=== PATIENT | male | born 1955 | race Caucasian/White ===

== ENCOUNTER 2020-08-12 02:28 | Inpatient (IN) | payer MEDICARE, MEDICAID ==
[~2020-08-12] VITALS: Ht 172.7 cm; Wt 70.3 kg
[~2020-08-12 02:28] MED LIST: LURA40TA2 PO; OMEP20 PO; TAMS-13 PO; XALA2.5OS OU
[2020-08-12] MEDS ORDERED: HALOPERIDOL 5 MG TABLET PO PRN (05:00)
[2020-08-12 06:03] VITALS: BP 122/64
[2020-08-12] MEDS ORDERED: INFLUENZA VIRUS VACCINE QVS 2020-21 (6MO+)/PF 60 MCG/0.5 ML SYRINGE IM ONE (06:15)
[2020-08-12] MEDS ORDERED: PNEUMOCOCCAL VACCINE POLYVALENT 0.5 ML VIAL [PPSV23] IM ONE (06:15)
[2020-08-12] MEDS ORDERED: DOCUSATE SODIUM 100 MG CAPSULE PO PRN (07:30)
[2020-08-12] MEDS ORDERED: MAGNESIUM HYDROXIDE SUSPENSION 30 ML UDCUP PO PRN (07:30)
[2020-08-12] MEDS ORDERED: GuaiFENesin/D-METHORPHAN [SUGAR-FREE] 200-20MG/10 ML SYRUP UDCUP PO PRN (07:30)
[2020-08-12] MEDS ORDERED: ONDANSETRON HCL 4 MG TABLET PO PRN (07:30)
[2020-08-12] MEDS ORDERED: ALBUTEROL SULFATE HFA 90 MCG/PUFF 8 GM INHALER IH PRN (07:30)
[2020-08-12] MEDS ORDERED: PETROLATUM,WHITE 28 GM JELLY TP PRN (07:30)
[2020-08-12] MEDS ORDERED: IBUPROFEN 400 MG TABLET PO PRN (07:30)
[2020-08-12] MEDS ORDERED: MAG HYDROX/AL HYDROX/SIMETH ES 30 ML SUSPENSION UDCUP PO PRN (07:30)
[2020-08-12] MEDS ORDERED: ACETAMINOPHEN 325 MG TABLET PO PRN (07:30)
[2020-08-12] MEDS ORDERED: CloNIDine HCL 0.1 MG TABLET PO PRN (07:30)
[2020-08-12] MEDS ORDERED: NICOTINE 14 MG/24 HOUR PATCH TD PRN (07:30)
[2020-08-12] MEDS ORDERED: LOPERAMIDE HCL 2 MG CAPSULE PO PRN (07:30)
[2020-08-12 08:11] VITALS: BP 114/63
[2020-08-12] MEDS ORDERED: TAMSULOSIN HCL 0.4 MG CAPSULE PO SCH (09:00)
[2020-08-12] MEDS ORDERED: ALBU8HFA IH (09:14)
[2020-08-12] MEDS ORDERED: AMLO-258 PO (09:22)
[2020-08-12] MEDS ORDERED: ASPI-1450 PO (09:22)
[2020-08-12] MEDS ORDERED: LISI-893 PO (09:22)
[2020-08-12] MEDS ORDERED: DULO-8 PO (09:22)
[2020-08-12] MEDS: OMEPRAZOLE 20 MG CAPSULE PO SCH (09:30)
[2020-08-12] MEDS ORDERED: FLUT1BLS8 IH (09:33)
[2020-08-12] MEDS ORDERED: MODA100T65 PO (09:33)
[2020-08-12] MEDS ORDERED: LURA80TA2 PO (09:33)
[2020-08-12] MEDS ORDERED: TAMS-13 PO (09:33)
[2020-08-12] MEDS ORDERED: METO50 PO (09:33)
[2020-08-12] MEDS ORDERED: BIMA12.5OS OU (09:33)
[2020-08-12] MEDS ORDERED: ONDA-104 PO (09:33)
[2020-08-12] MEDS ORDERED: GABA-1181 PO (10:09)
[2020-08-12] MEDS: DULoxetine HCL 60 MG CAPSULE PO SCH (12:14)
[2020-08-12] MEDS: LURASIDONE HCL 80 MG TABLET PO SCH (17:03)
[2020-08-12 17:45] VITALS: BP 110/60
[2020-08-12] MEDS: TAMSULOSIN HCL 0.4 MG CAPSULE PO SCH (20:46)
[2020-08-12] MEDS: LATANOPROST 0.005% 2.5 ML OPHTHALMIC SOLUTION OU SCH (21:32)
[2020-08-13] MEDS: ZOLPIDEM TARTRATE 10 MG TABLET PO PRN ×2 (02:12→08:35)
[2020-08-13 04:09] VITALS: BP 108/61
[2020-08-13 08:11] VITALS: BP 111/71
[2020-08-13] MEDS: ASPIRIN 81 MG CHEWABLE TABLET PO SCH (08:33)
[2020-08-13] MEDS: DULoxetine HCL 60 MG CAPSULE PO SCH (08:33)
[2020-08-13] MEDS: OMEPRAZOLE 20 MG CAPSULE PO SCH (08:33)
[2020-08-13] MEDS: MODAFINIL 100 MG TABLET PO SCH (08:34)
[2020-08-13] MEDS: METOPROLOL TARTRATE 50 MG TABLET PO SCH (09:00)
[2020-08-13] MEDS: AmLODIPine BESYLATE 10 MG TABLET PO SCH (09:00)
[2020-08-13] MEDS: LISINOPRIL 10 MG TABLET PO SCH (09:00)
[2020-08-13 12:46] LABS: BILIRUBIN,URINE NEGATIVE (NEGATIVE); GLUCOSE, URINE (UA) NEGATIVE (NEGATIVE); KETONES,URINE NEGATIVE (NEGATIVE); LEUKOCYTE ESTERASE ,URINE NEGATIVE (NEGATIVE); NITRATE,URINE NEGATIVE (NEGATIVE); OCCULT BLOOD,URINE NEGATIVE (NEGATIVE); PH,URINE 7.5 (5.0-8.0); PROTEIN,URINE NEGATIVE (NEGATIVE)
[2020-08-13 12:49] LABS: APPEARANCE,URINE HAZY (CLEAR)
[2020-08-13 13:35] LABS: AMPHET/METH SCREEN,URINE POSITIVE (NEGATIVE); BARBITURATE SCREEN, URINE POSITIVE (NEGATIVE); BENZODIAZEPINES SCREEN,URINE NEGATIVE (NEGATIVE); CANNABINOID SCREEN,URINE NEGATIVE (NEGATIVE); COCAINE SCREEN,URINE NEGATIVE (NEGATIVE); METHADONE SCREEN, URINE NEGATIVE (NEGATIVE); OPIATE SCREEN,URINE NEGATIVE (NEGATIVE)
[2020-08-13 13:46] LABS: PHENCYCLIDINE SCREEN,URINE NEGATIVE (NEGATIVE)
[2020-08-13 16:12] VITALS: BP 129/75
[2020-08-13] MEDS: LURASIDONE HCL 80 MG TABLET PO SCH (17:27)
[2020-08-13] MEDS: LORazepam 2 MG TABLET PO PRN (17:52)
[2020-08-13] MEDS ORDERED: BIMATOPROST 0.01% 2.5 ML OPHTHALMIC SOLUTION OU SCH (21:00)
[2020-08-13] MEDS: LATANOPROST 0.005% 2.5 ML OPHTHALMIC SOLUTION OU SCH (21:51)
[2020-08-13] MEDS: TAMSULOSIN HCL 0.4 MG CAPSULE PO SCH (21:51)
[2020-08-14] MEDS: LORazepam 2 MG TABLET PO PRN (02:06)
[2020-08-14 06:33] VITALS: BP 128/72
[2020-08-14] MEDS: DULoxetine HCL 60 MG CAPSULE PO SCH (08:02)
[2020-08-14] MEDS: ASPIRIN 81 MG CHEWABLE TABLET PO SCH (08:02)
[2020-08-14] MEDS: MODAFINIL 100 MG TABLET PO SCH (08:02)
[2020-08-14] MEDS: OMEPRAZOLE 20 MG CAPSULE PO SCH (08:03)
[2020-08-14] MEDS: AmLODIPine BESYLATE 10 MG TABLET PO SCH (08:03)
[2020-08-14] MEDS: LISINOPRIL 10 MG TABLET PO SCH (08:03)
[2020-08-14] MEDS: METOPROLOL TARTRATE 50 MG TABLET PO SCH (08:03)
[2020-08-14 08:32] VITALS: BP 126/79
[2020-08-14] MEDS ORDERED: MODAFINIL 100 MG TABLET PO SCH (09:00)
[2020-08-14] MEDS ORDERED: MODAFINIL 100 MG TABLET PO ONE (09:15)
[2020-08-14] MEDS ORDERED: MODA100T65 PO (14:52)
[2020-08-14 16:35] VITALS: BP 135/77
[2020-08-15] MEDS ORDERED: MODAFINIL 100 MG TABLET PO SCH (09:00)
== END 2020-08-14 22:25 | disposition home or self-care (01) | DRG 885 ==
LOC: B2S 04:00
DX: F31.4 Bipolar disorder, current episode depressed, severe, without psychotic features (principal); B19.20 Unspecified viral hepatitis C without hepatic coma; F11.20 Opioid dependence, uncomplicated; R45.851 Suicidal ideations; Z91.5 Personal history of self-harm; J44.9 Chronic obstructive pulmonary disease, unspecified; N40.0 Benign prostatic hyperplasia without lower urinary tract symptoms; I10 Essential (primary) hypertension; I34.1 Nonrheumatic mitral (valve) prolapse; M79.7 Fibromyalgia; M19.90 Unspecified osteoarthritis, unspecified site; K21.9 Gastro-esophageal reflux disease without esophagitis; M54.9 Dorsalgia, unspecified; F19.10 Other psychoactive substance abuse, uncomplicated; Z79.899 Other long term (current) drug therapy; F15.10 Other stimulant abuse, uncomplicated; H26.9 Unspecified cataract; Z28.21 Immunization not carried out because of patient refusal
CPT/HCPCS: 80307